=== PATIENT | female | born 1995 | race Two or more races ===

== ENCOUNTER 2024-03-16 21:51 | Observation (INO) | payer MEDICAID, OTHER ==
[~2024-03-16] VITALS: Ht 160 cm; Wt 87.1 kg
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
== END 2024-03-17 00:08 | disposition home or self-care (01) ==
LOC: LDRP 21:51
PROVIDERS: ADMIT Obstetrics & Gynecology; ATTEND Obstetrics & Gynecology
DX: O26.893 Other specified pregnancy related conditions, third trimester (principal); R10.2 Pelvic and perineal pain; Z98.890 Other specified postprocedural states; Z79.899 Other long term (current) drug therapy; V89.2XXA Person injured in unspecified motor-vehicle accident, traffic, initial encounter; Y93.89 Activity, other specified; Y92.89 Other specified places as the place of occurrence of the external cause; Y99.8 Other external cause status; Z3A.34 34 weeks gestation of pregnancy
CPT/HCPCS: 59025; 76818; 81002; 94760; G0378